=== PATIENT | male | born 1990 | race Caucasian/White ===

== ENCOUNTER 2017-06-29 23:10 | Emergency (ER) | payer BC ==
[~2017-06-29] VITALS: Ht 182.9 cm; Wt 74.5 kg
[2017-06-30] MEDS ORDERED: IBUPROFEN600 MG PO (01:47)
[2017-06-30 01:59] VITALS: BP 114/72
== END 2017-06-30 02:08 | disposition home or self-care (01) | DRG 90 ==
LOC: ED 23:10
DX: S06.0X0A Concussion without loss of consciousness, initial encounter (principal); W22.09XA Striking against other stationary object, initial encounter; Y93.89 Activity, other specified; Y92.007 Garden or yard of unspecified non-institutional (private) residence as the place of occurrence of the external cause